=== PATIENT | male | born 1975 | race African-American/Black ===

== ENCOUNTER 2017-06-17 04:48 | Observation (INO) | payer OTHER ==
[2017-06-15 11:52] LABS: HEMATOCRIT 44.7 % (40.0-51.0); HEMOGLOBIN 15.4 g/dL (13.6-17.8)
[2017-06-15 12:03] LABS: BUN (BLOOD UREA NITROGEN) 20 MG/DL (6-23); CALCIUM, SERUM 9.1 MG/DL (8.5-10.4); CHLORIDE, SERUM 106 MMOL/L (96-112); CO2 (CARBON DIOXIDE) 30 MMOL/L (24-34); CREATININE 1.15 MG/DL (0.70-1.30); GFR AFRICAN AMERICAN 92 ML/MIN (>=60); GFR NON AFRICAN AMERICAN 79 ML/MIN (>=60); GLUCOSE, SERUM 79 MG/DL (60-99); POTASSIUM, SERUM 3.9 MMOL/L (3.5-5.3); SODIUM, SERUM 140 MMOL/L (135-148)
[~2017-06-17] VITALS: Ht 198.1 cm; Wt 92.5 kg
--- NOTE | ~2017-06-17 | PREOPHP ---
PreOp History and Physical [address] [place]. [address] NAME: LAMONTE VU : 79 STATUS : REG [facility] PAT#: [id number] AGE: 42 ADM/REG DATE : 06/17/17 MR#: [id number] REPORT SERV DATE: 06/17/17 DICTATED BY: BRIAN PARK DATE: 06/17/17 REPORT STATUS : Draft TRANSCRIBED BY: EDWAR DATE: 06/17/17 CHIEF COMPLAINT: Neck pain. HISTORY OF PRESENT ILLNESS: The patient is a very pleasant 42-year-old gentleman with intractable neck pain and left upper extremity pain. He has also been having progressive signs of cervical radiculopathy and myelopathy with weakness in the left upper extremity. Failed conservative treatment. After neurologic decline elects to proceed with surgical intervention. REVIEW OF SYSTEMS: He denies chest pain, shortness of breath, and bowel or bladder changes. ALLERGIES: DENIED. HOME MEDICATIONS: Denied. FAMILY HISTORY: Noncontributory. PAST SURGICAL HISTORY: Previous shoulder surgery. PAST MEDICAL HISTORY: Otherwise negative. PHYSICAL EXAMINATION: VITAL SIGNS: Height is 6 feet 6 inches, weight 205, BMI 23.7. GENERAL: The patient is healthy appearing, no acute distress. PSYCH: Alert and oriented x3. Normal mood and affect. Gait is somewhat unsteady. VASCULAR: No extremity swelling. SPINE: Decreased cervical motion. HEART: Regular rate and rhythm. LUNGS: Clear to auscultation. ABDOMEN: Soft, nontender, nondistended with good bowel sounds. BREASTS AND RECTAL: Both deferred. NEUROLOGIC: Motor strength is 4/5 for the left triceps, otherwise 5/5 for bilateral upper extremities. Decreased sensation to light touch in left upper extremity to C6 and C7 distributions. IMAGING: I have reviewed the MRI scan. It does show C5-C7 disk disease and stenosis with spinal cord compression and nerve root compression. ASSESSMENT: Cervical disk disease and stenosis, progressive signs of cervical myelopathy, left upper extremity weakness, failed conservative treatment. PLAN: The patient presents today for surgical intervention. Consent was obtained. All questions were answered. Ready to proceed with surgery. PreOp History and Physical [address] [place]. [address] NAME: LAMONTE VU : 79 STATUS : REG [facility]#: [id number] AGE: 42 ADM/REG DATE : 06/17/17 MR#: [id number] REPORT SERV DATE: 06/17/17 DICTATED BY: BRIAN PARK DATE: 06/17/17 REPORT STATUS : Draft TRANSCRIBED BY: EDWAR DATE: 06/17/17 GALLO/EDWAR Brian Park DO / [id number] CC: Brian Park DO
--- NOTE | ~2017-06-17 | OP ---
Record Of Operation [facility] [address] [place]. 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 PROCEDURES: 1. Anterior cervical diskectomy and fusion, C5-6 and C6-7. 2. Placement of [employer] PEEK interbody spacer, C5-6 and C6-7. 3. Anterior cervical plate from [employer], C5-C7. 4. Allograft bone matrix. 5. Operative microscope. 6. Neuromonitoring. ANESTHESIA: General. ESTIMATED BLOOD LOSS: 10 mL. COMPLICATIONS: None. INDICATIONS: The patient is a pleasant 42-year-old gentleman with intractable neck and left upper extremity pain and weakness and progressive signs of myelopathy. After failing conservative treatment and progressive neurologic decline, they elected to proceed with surgery. PROCEDURE IN DETAIL: Identified the patient in the holding area. Consent was obtained. Went to the operating room. Underwent general anesthesia with endotracheal intubation. Prepped and draped in the usual sterile fashion. Operative safety pause was performed, and then we proceeded. An oblique incision was made over the left side of the neck, taken down through the platysma. Dissection carried out down to the anterior aspect of the spine and longus colli elevated. Self-retaining retractors were placed. Joes pin was placed, and lateral fluoroscopic image used to verify operative level. Joes pins were placed at C6 and C7. Distraction applied. Operative microscope was brought in, and a knife was used to perform an annulotomy. Free disk material removed with the pituitary. Anterior osteophytes removed with a Kerrison. Posterior osteophytes and uncinate processes taken down with a jim bur. Foraminotomies performed with a Kerrison. Endplates were prepared with curettes, rasp, and a cutting bur. Trial spacers implanted, then Medtronic PEEK interbody spacer with allograft bone matrix was placed at C6-C7. This was repeated again at the C5-C6 level. Joes pins were removed. Anterior cervical plate from [employer] was placed at C5- C7. Screws were placed, final tightened. Locking mechanisms were engaged. Irrigation performed. Hemostasis achieved. Final AP and lateral fluoroscopic images obtained. Record Of Operation [address] [address] NAME: LAMONTE VU : 79 STATUS : ADM [facility] PAT#: [id number] AGE: 42 ADM/REG DATE : 06/17/17 MR#: [id number] REPORT SERV DATE: 06/17/17 DICTATED BY: BRIAN PARK DATE: 06/17/17 REPORT STATUS : Draft TRANSCRIBED BY: MODL DATE: 06/17/17 Subplatysmal drain was placed. Layered closure performed. Sterile dressings applied. The patient was awoken and extubated, and taken to the recovery room in stable condition. OPERATIVE FINDINGS: C5-7 disk disease and stenosis. No sustained neuromonitoring alerts occurred. GALLO/EDWAR Brian Park DO / [id number] CC: Brian Park DO
[~2017-06-17 04:48] MED LIST: *DENIES; MIRALAXPKT PO; MULTIPLE VIT PO; NORCO1 TAB PO; TYLENOL PO; XARELTO15 MG PO
[2017-06-18 06:09] LABS: BUN (BLOOD UREA NITROGEN) 11 MG/DL (6-23); CALCIUM, SERUM 8.5 MG/DL (8.5-10.4); CHLORIDE, SERUM 105 MMOL/L (96-112); CO2 (CARBON DIOXIDE) 28 MMOL/L (24-34); CREATININE 1.07 MG/DL (0.70-1.30); GFR AFRICAN AMERICAN 100 ML/MIN (>=60); GFR NON AFRICAN AMERICAN 86 ML/MIN (>=60); GLUCOSE, SERUM 105 MG/DL (60-99); POTASSIUM, SERUM 3.8 MMOL/L (3.5-5.3); SODIUM, SERUM 140 MMOL/L (135-148)
[2017-06-19] MEDS ORDERED: FLEX PO (09:45)
[2017-06-19] MEDS ORDERED: PCET PO (09:45)
== END 2017-06-19 11:16 | disposition home or self-care (01) ==
LOC: ENRESERVDT → ENRESERV → ENRESERVTM → CANRESERV → SDC 04:48 → SDC/OF 09:18 → 3SO 09:18 → SDC 11:45 → 3SO 06-19 11:16 → SDC 07-06 06:45
PROVIDERS: Orthopaedic Surgery
PROC: 0RG20A0 Fusion of 2 or more Cervical Vertebral Joints with Interbody Fusion Device, Anterior Approach, Anterior Column, Open Approach (ICD-10-PCS; principal; 2017-06-17 06:45)
PROC: 0RG20K0 Fusion of 2 or more Cervical Vertebral Joints with Nonautologous Tissue Substitute, Anterior Approach, Anterior Column, Open Approach (ICD-10-PCS; 2017-06-17 06:45)
DX: M48.02 Spinal stenosis, cervical region (principal); M50.122 Cervical disc disorder at C5-C6 level with radiculopathy; M47.12 Other spondylosis with myelopathy, cervical region; G95.20 Unspecified cord compression; Z98.890 Other specified postprocedural states
CPT/HCPCS: 80048; 82962; 85014; 85018; 87641; 88304; 88311; 93005; 96374; 96376; 97161-GP; A9270-GY; C1713; G0378; J0690; J2250; J2270; J2405; J3010